=== PATIENT | male | born 1980 | race Two or more races ===

== ENCOUNTER 2017-08-31 11:28 | Emergency (ER) | payer OTHER ==
[2017-08-31 11:34] VITALS: BP 151/96; PULSE 92; RESP 18; TEMP 98.1; O2SAT 96
== END 2017-08-31 11:29 | disposition left against medical advice (07) ==
LOC: C.ER 11:28
DX: Z02.89 Encounter for other administrative examinations (principal); F19.10 Other psychoactive substance abuse, uncomplicated